=== PATIENT | female | born 1940 | race Caucasian/White ===

== ENCOUNTER 2016-08-02 19:02 | Emergency (ER) | payer MEDICARE | END 2016-08-02 22:21 | disposition left against medical advice (07) | LOC: ER1 19:02 | DX: Z53.21 Procedure and treatment not carried out due to patient leaving prior to being seen by health care provider (principal) ==

== ENCOUNTER 2020-08-03 20:13 | Emergency (ER) | payer OTHER ==
[~2020-08-03 20:13] MED LIST: BACTROBAN OINT22 GM EXT
== END 2020-08-03 21:16 | disposition home or self-care (01) ==
LOC: ER1 20:13
DX: I10 Essential (primary) hypertension (principal); Z90.49 Acquired absence of other specified parts of digestive tract
CPT/HCPCS: 99283

== ENCOUNTER 2020-11-28 16:57 | Emergency (ER) | payer OTHER | END 2020-11-28 21:00 | disposition home or self-care (01) | LOC: ER1 16:57 | DX: S09.90XA Unspecified injury of head, initial encounter (principal); M54.50 Low back pain, unspecified; I10 Essential (primary) hypertension; W01.0XXA Fall on same level from slipping, tripping and stumbling without subsequent striking against object, initial encounter; Y92.410 Unspecified street and highway as the place of occurrence of the external cause | CPT/HCPCS: 70450; 72100; 72170; 72220; 99284 ==